=== PATIENT | male | born 1990 | race Caucasian/White ===

== ENCOUNTER 2024-03-20 22:41 | Inpatient (IN) | payer OTHER ==
[~2024-03-20] VITALS: Ht 180.3 cm; Wt 90.0 kg
[2024-03-20] MEDS ORDERED: KETAMINE HCL 500 MG/5 ML MDV ONE ×2 (22:52→23:00)
[2024-03-20] MEDS ORDERED: KETAMINE HCL 500 MG/5 ML MDV IM ONE ×2 (23:00→23:15)
[2024-03-20] MEDS ORDERED: CEFTRIAXONE/SODIUM CHLORIDE 2 GM/100 ML PIGGYBACK IV ONE (23:30)
[2024-03-20] MEDS ORDERED: SODIUM CHLORIDE 0.9% 1,000 ML IV PRN (23:30)
[2024-03-20] MEDS ORDERED: DIPHTH,PERTUSS(ACELL),TET VAC 0.5 ML SYRINGE IM ONE (23:30)
[2024-03-20 23:38] LABS: HEMATOCRIT 39.2 % (35.0-50.0); HEMOGLOBIN 13.2 g/dL (12.0-18.0); MCH 31.4 (27-36); MCHC 33.6 g/dl (30-36); MCV 93.6 fl (81-99); PLATELET COUNT 279 K/uL (140-440); RBC 4.18 M/ul (4.3-5.7); RDW 13.4 (10.5-15.0)
[2024-03-20 23:51] LABS: BANDS, MANUAL DIFF 7; LYMPHOCYTES, MANUAL DIFF 11; MONOCYTES, MANUAL DIFF 5; NEUTROPHILS, MANUAL DIFF 77
[2024-03-21] VITALS (7 sets, daily range): BP systolic 129–159; BP diastolic 75–95
[2024-03-21 00:03] LABS: ALBUMIN 4.2 g/dL (3.4-5.0); ALBUMIN/GLOBULIN RATIO 1.35 (1.1-2.4); ANION GAP 21.3 (7-21); BILIRUBIN, TOTAL 1.6 ng/dL (0.2-1.0); BUN/CREATININE RATIO 16.77 (6.0-28.6); CREATININE, SERUM 1.55 mg/dL (0.70-1.30); POTASSIUM 4.3 mmol/L (3.5-5.1); PROTEIN, TOTAL 7.3 g/dL (6.4-8.2)
[2024-03-21 00:09] LABS: AMPHETAMINES, URINE NEGATIVE (NEGATIVE); BARBITURATES, URINE NEGATIVE (NEGATIVE); BENZODIAZEPINE, URINE NEGATIVE (NEGATIVE); BUPRENORPHINE, URINE NEGATIVE (NEGATIVE); CANNABINOID, URINE NEGATIVE (NEGATIVE); COCAINE, URINE NEGATIVE (NEGATIVE); ECSTASY, URINE NEGATIVE (NEGATIVE); FENTANYL, URINE NEGATIVE (NEGATIVE); METHADONE, URINE NEGATIVE (NEGATIVE); OPIATES, URINE NEGATIVE (NEGATIVE); OXYCODONE, URINE NEGATIVE (NEGATIVE); PHENCYCLIDINE, URINE NEGATIVE (NEGATIVE)
[2024-03-21] MEDS ORDERED: SODIUM CHLORIDE 0.9% 1,000 ML IV SCH ×2 (01:30→01:45)
[2024-03-21] MEDS ORDERED: ACETAMINOPHEN 325 MG TAB PO PRN ×2 (01:45→13:45)
[2024-03-21] MEDS ORDERED: MORPHINE SULFATE 4 MG/ML VIAL IV PRN ×2 (01:45→13:45)
[2024-03-21] MEDS ORDERED: ondansetron HCL 4 MG/2 ML VIAL IV PRN (01:45)
[2024-03-21] MEDS ORDERED: TRAZODONE HCL 100 MG TAB PO ONE (02:15)
[2024-03-21] MEDS ORDERED: LORazepam 0.5 MG TAB PO ONE (03:00)
[2024-03-21 06:22] LABS: BASOPHILS 0.2 % (0-2); HEMATOCRIT 39.7 % (35.0-50.0); HEMOGLOBIN 13.4 g/dL (12.0-18.0); LYMPHOCYTES 20.1 % (24-44); MCH 31.8 (27-36); MCHC 33.7 g/dl (30-36); MCV 94.3 fl (81-99); MONOCYTES 10.7 % (0-12); PLATELET COUNT 223 K/uL (140-440); RBC 4.21 M/ul (4.3-5.7); RDW 13.6 (10.5-15.0)
[2024-03-21 06:48] LABS: ALBUMIN 3.7 g/dL (3.4-5.0); ALBUMIN/GLOBULIN RATIO 1.23 (1.1-2.4); ANION GAP 16.8 (7-21); BILIRUBIN, TOTAL 1.3 ng/dL (0.2-1.0); BUN/CREATININE RATIO 17.96 (6.0-28.6); CALCIUM 8.2 mg/dL (8.5-10.1); CREATININE, SERUM 1.28 mg/dL (0.70-1.30); POTASSIUM 3.8 mmol/L (3.5-5.1); PROTEIN, TOTAL 6.7 g/dL (6.4-8.2)
--- NOTE | 2024-03-21 08:25 | NUR ---
BEDSIDE REPORT RECEIVED FROM IRVIN STEVENSON. PT ESCORTED TO MED-SURG ROOM 117. PT TRANSFERS SELF TO BED WITH STAND AND PIVOT, TOLERATES THIS WELL. ORTHO BOOT IN PLACE TO RLE. PT IS WITHDRAWN AND TEARFUL UPON ARRIVAL. HR TRACHYCARDIC WITH TELEMETRY IN PLACE. PT REPORTS ANXIETY AND REQUESTS ATIVAN. INTERMITTMENT FULL BODY TREMORING NOTED. VSS.
[2024-03-21] MEDS ORDERED: CEFTRIAXONE/SODIUM CHLORIDE 2 GM/100 ML PIGGYBACK IV SCH (09:00)
[2024-03-21] MEDS ORDERED: NICOTINE 21 MG/24 HR 1 EA TDSY TD SCH (09:09)
--- NOTE | 2024-03-21 09:10 | NUR ---
PT REQUESTS ATIVAN FOR ANXIETY, PT VISIBLY SHAKES, TEARFUL. PT REQUESTS SOMETHING FOR SLEEP AND NICOTINE. DR. COLLADO NOTIFIED VIA PHONE, NEW ORDERS RECEIVED.
[2024-03-21] MEDS ORDERED: LORazepam 2 MG/ML VIAL IV PRN ×3 (09:15→18:00)
--- NOTE | 2024-03-21 09:32 | NUR ---
PT BR LIGHT ANSW. PT BACK TO CHAIR SBA. PT VITALS AND I'S AND O'S COMPLETE. PT REQ BREATHING TX. RN NOTIFIED. PT DENIES ANY FUTHER NEEDS, CALL LIGHT IN REACH
[2024-03-21] MEDS ORDERED: VYVANSE10 MG PO (10:04)
[2024-03-21] MEDS ORDERED: TRUVADA 200 MG1 EACH PO (10:04)
[2024-03-21] MEDS ORDERED: CYMBALTA30 MG PO (10:05)
[2024-03-21] MEDS ORDERED: STRATTERA100 MG PO (10:05)
[2024-03-21] MEDS ORDERED: GUANFACINE HCL E4 MG PO (10:08)
[2024-03-21] MEDS ORDERED: SEROQUEL25 MG PO (10:10)
[2024-03-21] MEDS ORDERED: ZYRTEC10 M3 PO (10:13)
[2024-03-21] MEDS ORDERED: ATIVAN2 MG PO (10:14)
[2024-03-21] MEDS ORDERED: ENOXAPARIN SODIUM 40 MG/0.4 ML SYR SUB-Q SCH (10:14)
--- NOTE | 2024-03-21 11:00 | NUR ---
VISITED DURING SPIRITUAL CARE ROUNDS. VERIFIED CATHOLIC PREFENCE; PT STATES AGNOSTIC, DENIED IMMEDIATE NEEDS, RETICENT TO CONVERSE. PROVIDED HOSPITALITY, SILENT PRAYER.
--- NOTE | 2024-03-21 11:11 | NUR ---
pt call light answered. pt stated that a nurse said they would bring a manager distribution. I brought in manager distribution for pts phone. pt denies further needs. call light in reach
[2024-03-21] MEDS ORDERED: LORazepam 2 MG/ML VIAL IV ONE ×2 (11:15→13:00)
[2024-03-21] MEDS ORDERED: PHARMACY RENAL DOSE ADJUSTMENT 1 DOSE MISC PO SCH (12:00)
--- NOTE | 2024-03-21 12:24 | NUR ---
[facility] CLINICAL REVIEW: [facility] CRITERIA FOR INPATIENT STAY SELF-PAY INPATIENT 03/21/24 @ 1014 ORDER MATCHED REG DISCHARGE PENDING FURTHER ASSESSMENT 03/24/24
--- NOTE | 2024-03-21 12:49 | NUR ---
medications reconciled using patient's list and patient interview
--- NOTE | 2024-03-21 13:10 | NUR ---
PER Meme WAYNE RN, PATIENT IS ANXIOUS AT THIS TIME. SHE IS GIVING PRESCRIBED MEDICATION BUT STATES HE IS VERY ANXIOUS. WILL RETURN WHEN MEDICATION HAS HAD TIME TO WORK.
[2024-03-21] MEDS ORDERED: DULOXETINE HCL 30 MG CAP PO SCH (13:13)
[2024-03-21] MEDS ORDERED: QUETIAPINE FUMARATE 25 MG TAB PO PRN (13:15)
[2024-03-21] MEDS ORDERED: EMTRICITABINE/TENOFOVIR TABLET PO SCH (13:17)
--- NOTE | 2024-03-21 13:31 | NUR ---
PT EXPRESSES ANXIETY, FULL BODY TREMORS, REQUEST ATIVAN, TAKES 2 MG OF ATIVAN AT HOME PRN. DR. COLLADO NOTIFIED, NEW ORDERS RECEIVED. PT RECEIVES ATIVAN, SEE EMAR.
[2024-03-21] MEDS ORDERED: HYDROCODONE/APAP 10/325 1 TAB PO PRN (13:45)
--- NOTE | 2024-03-21 13:45 | NUR ---
DR. COLLADO NOTIFIED THAT PAIN MEDICATION ORDERS BRIDGED FROM ER HAVE DISCONTINUED, NO PAIN MEDICATION AVAILABLE IN EMAR FOR PT, NEW ORDERS RECEIVED.
--- NOTE | 2024-03-21 13:46 | NUR ---
pt in bed. vitals and is and os complete. pt urinal emptied and placed at bedside. pt ice water refilled. pt denies any needs, call light in reach
[2024-03-21] MEDS ORDERED: GUANFACINE HCL 1 MG TAB PO SCH (14:52)
--- NOTE | 2024-03-21 16:30 | NUR ---
DRESSING OVER RIGHT FOOT REMOVED, PHOTOS OF RIGHT FOOT INJURY OBTAINED. SIGNIFICANT SWELLING NOTED OVER FOOT AND ANKLE. REDNESS AND BRUISING NOTED OVER FOOT, ANKLE AND BILATERAL SIDES OF FOOT. SMALL SCATTERED SKIN BREAKS, PARTIAL-THICKNESS NOTED OVER DORSAL FOOT. BACITRACIN OINTMENT APPLIED WITH NON-ADHERENT DRESSING OVER BROKEN SKIN. FOOT COVERED WITH GAUZE ROLL AND LIGHTLY WRAPPED WITH ELASTIC BANDAGE. RLE REMAINS IN ORTHO BOOT. ICE APPLIED OVER FOOT. CMS INTACT TO ALL DIGITS OF RIGHT FOOT, SKIN IS WARM AND PINK OVER TOES.
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
--- NOTE | 2024-03-21 17:33 | NUR ---
PT IN BED. WOOL HANKER, WELL A FEMALE PRESENT IN THE ROOM VISITING W PT, BUT LEFT ROOM AFTER ARRIVAL TO ROOM. PT VITALS, IS AND OS COMPLETE. PT PROVIDED HAYLEY DAPHNIE. PT LING CACERES RN NOTIFIED. PT DENIES ANY FURTHER NEEDS. CALL LIGHT IN REACH
--- NOTE | 2024-03-21 17:48 | NUR ---
DR. COLLADO NOTIFIED OF PT ANXIETY ESCALATING, NEW ORDER TO INCREASE FREQUENTY OF PRN ATIVAN TO Q3 HRS RECEIVED. PT RECEIVES ATIVAN. PT EATS DINNER. CALL LIGHT IN REACH, RLE ELEVATED, ICE IN PLACE RIGHT FOOT AND LEFT ANKLE. NO FURTHER REQUESTS AT THIS TIME.
--- NOTE | 2024-03-21 19:23 | NUR ---
REPORT RECEIVED FROM DAY SHIFT RN. PATIENT RESTING IN BED. BOOT IN PLACE TO RIGHT LOWER EXTERMITY. ICE TO BILATERAL LOWER EXTERMITIES. PATIENT DENIES ANY NEEDS AT THIS TIME. CALL LIGHT WITHIN REACH.
--- NOTE | 2024-03-21 20:30 | NUR ---
PATIENT RESTING IN BED LISTENING TO PHONE. PATIENT VSS, BOWEL TONES ACTIVE X 4 QUADRANTS. ABD TENDER TO TOUCH. RLE REMAINS IN BOOT, DRESSING TO RLE INATCT. SWELLING NOTED, POSITIVE CMS TO RLE. POSITIVE CMS TO LLE. ICE IN PLACE TO BOTHE BLLE. RLE ELEVATED. PATIENT C/O PAIN PRN GIVEN SEE NOV. LUNG SOUNDS CTA. TELE IN PLACE AND FUNCTIONING WNL. URINAL EMPTIED. NO FURTHER NEEDS AT THIS TIME. CALL LIGHT WITHIN REACH.
[2024-03-21] MEDS ORDERED: CETIRIZINE HCL 10 MG TAB PO SCH (21:00)
[2024-03-21] MEDS ORDERED: MELATONIN 3 MG TAB PO SCH (21:00)
--- NOTE | 2024-03-21 21:07 | NUR ---
PT CALLED ASKED FOR ICE WATER. PT ASKED IF HE COULD GET SOMETHING FOR SLEEP. RN WAS NOTIFIED. PT HAS CALL LIGHT AND IS OKAY
--- NOTE | 2024-03-21 23:00 | NUR ---
PATIENT RESTING IN BED WITH EYES CLOSED. LAYING ON HIS LEFT SIDE. RESPIRATIONS EVEN AND UNLABORED. CALL LIGHT WITHIN REACH.
[2024-03-22] VITALS (11 sets, daily range): BP systolic 138–161; BP diastolic 67–94
--- NOTE | 2024-03-22 00:55 | NUR ---
PATIENT RESTING IN BED WITH EYES CLOSED. RESPIRATIONS EVEN AND UNLABORED. CALL LIGHT WITHIN REACH.
--- NOTE | 2024-03-22 02:00 | NUR ---
PATIENT VSS. PATIENT REMAINS TACHY PER BASELINE ON ADMIT. C/O PAIN AND ANXIETY PRN GIVEN SEE NOV. BOOT REMAINS IN PLACE TO RLE. CMS POSITIVE TO BIATERAL LOWER EXTREMITIES. VOIDING QUANITY SUFFICIENT. FRESH ICE WATER GIVEN. NO FURTHER NEEDS AT THIS TIME. CALL LIGHT WITHIN REACH.
--- NOTE | 2024-03-22 04:15 | NUR ---
PATIENT RESTING IN BED WITH EYES CLOSED. LAYING ON HIS LEFT SIDE. RESPIRATIONS EVEN AND UNLABORED. CALL LIGHT WITHIN REACH.
--- NOTE | 2024-03-22 05:06 | NUR ---
SPOKE WITH REGUARDING CONCERNS ABOUT PATIENT NOT HAVING MAINTANCE IVF AND AM LABS. NEW ORDERS RECEIVED FOR [facility] LABS THIS AM. ORDERS VERIFIED VIA VERBAL READ BACK.
--- NOTE | 2024-03-22 05:43 | NUR ---
WENT IN TO PT ROOM TO GRAB VITALS, PT ASKED FOR SOMETHING FOR HIS ANXIETY. RN WAS NOTIFIED. I CHARTED PT VITALS AND I & O'S. PT HAS CALL LIGHT.
--- NOTE | 2024-03-22 06:09 | NUR ---
PATIENT RESTING IN BED. REPORTS PAIN 7/10 AND INCREASED ANXIETY. PRN GIVEN SEE MAR. BOOT REMAINS IN PLACE TO RLE. ICE REAPPLIED TO RLE, ELEVATED WELL. POSITIVE CMS TO BLLE, SWELL REMAINS TO BLLE. BRUSIING TO RLE REMAINS. NO FURTHER NEEDS AT THIS TIME. CALL LIGHT WITHIN REACH.
[2024-03-22 06:15] LABS: BASOPHILS 0.4 % (0-2); EOSINOPHILS 1.1 % (0-6); HEMATOCRIT 34.3 % (35.0-50.0); LYMPHOCYTES 22.3 % (24-44); MCH 32.4 (27-36); MCHC 34.9 g/dl (30-36); MCV 92.9 fl (81-99); MONOCYTES 11.3 % (0-12); NEUTROPHILS 64.9 % (39-80); PLATELET COUNT 192 K/uL (140-440); RBC 3.69 M/ul (4.3-5.7); RDW 13.3 (10.5-15.0)
[2024-03-22 06:44] LABS: ANION GAP 9.2 (7-21); BUN/CREATININE RATIO 13.04 (6.0-28.6); CALCIUM 7.7 mg/dL (8.5-10.1); CREATININE, SERUM 0.92 mg/dL (0.70-1.30); POTASSIUM 3.2 mmol/L (3.5-5.1)
--- NOTE | 2024-03-22 08:00 | NUR ---
RN IN ROOM WITH MD EDWARD - PT RESTING IN BED WITH RIGHT LEG ELEVATED. PT OPENS EYES AND MAKES EYE CONTACT INTERMITANTLY WHILE ANSWERING QUESTIONS. PT ABLE TO REPORT SAME STORY TO DR. MURPHY IN REGARDS TO TRAVEL AND INTENTIONS/SITUATION. PT REPORTS SIGNIFICANT PAIN R ANKLE, MODERATE ANXIETY. TREMOR NOTED WELL SWEAT ON UPPER LIP. BOOT REMOVED AND EVALUATED, PEDAL PULSES PALPABLE, BRUISING AND INJURY NOT CONSISTANT OF STORY THAT HE FELL OUT OF BED WHILE WEARING SNEAKERS. PT STATES IS DIFFERENT THAN WHAT IS ON EMAR, ABLE TO SHOW ME ID CARD ON PHONE THAT STATES IS 02/17/24. SERVOMECHANISM DESIGNER NOTIFIED.
--- NOTE | 2024-03-22 08:12 | NUR ---
PT IS LAYING IN BED EYES CLOSED AND RESTING. WEED SCIENCE RESEARCH TECHNICIAN ENTERED ROOM AND EMPTIED PT URINAL. RESULT IS RECORDED ON BATHROOM DOOR. WEED SCIENCE RESEARCH TECHNICIAN ALSO UPDATED PT BOARD IN ROOM WITH CORRECT NURSE INFORMATION
--- NOTE | 2024-03-22 08:49 | NUR ---
Call light answered. Pt appears to be in pain as evidenced by facial grimacing. Pt is requesting pain and anxiety medication. RN notified of pt request. Call light within reach.
--- NOTE | 2024-03-22 09:00 | NUR ---
PAIN MEDICATION ADMINISTERED FOR 8/10 PAIN IN RIGHT ANKLE. ICE APPLIED AND ELEVATED. PRN FOR ANXIETY NOT YET DUE.
[2024-03-22] MEDS ORDERED: SODIUM CHLORIDE 0.9% 1,000 ML IV SCH (10:00)
[2024-03-22] MEDS ORDERED: POTASSIUM CHLORIDE 10 MEQ TABCR PO SCH (10:00)
--- NOTE | 2024-03-22 10:27 | NUR ---
PRN ATIVAN ADMINISTERED - PT RESTING IN BED ON CELL PHONE. REPORTS PAIN IS 6/10, EDUCATED ON AVAILABLE MEDICATION DOSING/TIMING. IV FLUID RUNNING AT 150ML/HOUR. URINE OUTPUT CLEAR YELLOW.
--- NOTE | 2024-03-22 12:37 | NUR ---
PRN PAIN MEDICATION ADMINISTERED FOR 7/10 LEG PAIN. REPORTS ANXIETY IS "STILL PRETTY BAD", DENIES ATIVAN HELPING. EDUCATION PROVIDED ON DOSE OF ATIVAN ADMINISTERED VS HOME DOSE. PT RESTING ON SIDE LISTENING TO AUDIO BOOK. LIGHTS AND WINDOWS REMAIN OFF PER PT REQUEST.
--- NOTE | 2024-03-22 12:40 | NUR ---
RN ROUNDING ON PT - UP IN CHAIR ON PHONE, STATES SHE FEELS "MUCH BETTER". DENIES NEEDS. CALL LIGHT IN REACH.
--- NOTE | 2024-03-22 13:38 | NUR ---
RECEIVED REPORT FROM IRVIN WALLER. ASSUMING CARE OF PT.
--- NOTE | 2024-03-22 14:19 | NUR ---
THIS RN ENTERS ROOM TO GIVE PT PRN PAIN MEDICATION AND ATIVAN, PT STATES PRN MORPHINE HAS NOT BEEN HELPING THE PAIN AND REQUESTS A DIFFERENT PAIN MEDICATION IF POSSIBLE. THIS RN SPEAKS WITH DR. COLLADO REGARDING THIS, MD STATES TO DC MORPHINE ORDER AND ORDER DILAUDED 1MG Q2 PRN. ORDERS ENTERED, REPEAT BACK PERFORMED. PHARMACY CALLED FOR POTENTIAL INTERACTIONS.
[2024-03-22] MEDS ORDERED: HYDROmorphone HCL 1 MG/ML SYR IV PRN (14:30)
--- NOTE | 2024-03-22 16:23 | NUR ---
PT IS LAYING IN BED ASLEEP. PATIENT HAS ICE WATER AND CALL LIGHT.
--- NOTE | 2024-03-22 17:43 | NUR ---
PT TALKING ON PHONE, STATES NO NEEDS AT THIS TIME. FINISHES DINNER TRAY. CALL LIGHT WITHIN REACH.
--- NOTE | 2024-03-22 18:18 | NUR ---
I GOT PATIENTS VITALS, Is AND Os. PATIENT SAYS HE IS IN PAIN AND WONDERING WHEN HIS NEXT PAIN PILL IS. RN WAS NOTIFIED. PATIENT HAS WATER AND CALL LIGHT.
--- NOTE | 2024-03-22 18:20 | NUR ---
PT REQUESTS PRN PAIN MEDICATION FOR 8/10 PAIN IN R FOOT, GIVEN. PT REQUESTS ATIVAN, GIVEN. PT STATES NO FURTHER NEEDS AT THIS TIME, CALL LIGHT WITHIN REACH.
--- NOTE | 2024-03-22 19:10 | NUR ---
REPORT RECEIVED FROM DAY RN. PATIENT RESTING IN BED. RIGHT FOOT IS ELEVATED. NO NEEDS AT THIS TIME. CALL LIGHT WITHIN REACH.
--- NOTE | 2024-03-22 19:56 | NUR ---
CALL LIGHT ANSWERED. PT REQUESTED ICE WATER AND SOMETHING TO EAT. FRAME CLEANER REFILLED ICE WATER AND GAVE PT A SANDWICH BOX. PT STATES NO FURTHER NEEDS AT THIS TIME. CALL LIGHT WITHIN REACH.
--- NOTE | 2024-03-22 20:26 | NUR ---
PATIENT CALL LIGHT ANSWERED. PATIENT INSISTING THAT HE WALK INTO THE BAHTROOM TO VOID. ASSISTED PATIENT INTO BATHROOM. AMBULATED WELL WITH FWW AND 1 PA ASSIST. WALKING BOOT IN PLACE. RN EDUCATED PATIENT ON IMPORTANCE OF AVOIDING BEARING WEIGHT ON HIS RLE. ONCE IN THE BAHTROOM PATIENT INSISTED THAT THIS RN LEAVE THE BATHROOM. PATIENT ASSISTED BACK INTO BED. HS MEDICATION GIVEN. PRN GIVEN FOR PAIN TO RLE. PATIENT AGAIN INSTSED THAT HE BE HELPED INTO THE BAHTROOM. RN ASSISTED PATIENT AMBULATE INTO BATHROOM. PATIENT REFUSED TO WEAR HIS WALKING BOOT THIS TIME. AGAIN ONCE IN BAHTROO PATIENT INSISTED THAT RN LEAVE THE BAHTROOM. PATIENT BACK IN BED. PATIENT NOW VISABLY SWEATING AND HOT. AGAIN PATIENT ASKED TO GO BACK INTO BAHTROOM. RN ASSISTED THE PATIENT TO USE THE URINAL IN BED. PATIENT FRUSTRATED WITH USING URINAL IN BED. PATIENT GOT OUT OF BED AND WENT INTO BAHTROOM. RN ATTEMPTED TO CUE AND GUIDE PATIENT BACK TO BED BUT HE REFUSED. RN ASSISTED PATIENT BACK INTO BED. FINANCE SPECIALIST IN ROOM TO ASSIST PATIENT WITH BLANKETS AND TOOK VITALS. VITALS WNL.
--- NOTE | 2024-03-22 21:00 | NUR ---
PT CALLED, RN TO ROOM, PT UNABLE TO STATE WHAT HE WANTED, FALLING ASLEEP DURING CONVERSATION, TRAVELIFT OPERATOR WITH THIS RN. NOTED PT RIGHT HAND SWOLLEN, PALM SIDE WELL, SL RED. IV FLUIDS PUT IN STANDBY; HOUSESUPERVISOR TO PUT IN IV. WHILE THIS RN IN ROOM, NOTED PT WITH PERIODS OF APNEA. DEEP SNORING DURING CONVERSATIONS; STERNAL RUB TO WAKE HIM. O2 STATS, 78-80 DURING THESE PERIODS. ONCE AWAKE, STATS IMPROVED TO 90'S.
--- NOTE | 2024-03-22 21:03 | NUR ---
PATIENT C/O NAUSEA. MD CONTACTED, NEW ORDERS RECEIVED VIA TELEPHONE. ORDERS VERIFIED VIA VERBAL READ BACK. PHENERGAN 12.5MG IV Q 4 PRN FOR NAUSEA AND VOMITTING.
--- NOTE | 2024-03-22 21:08 | NUR ---
PAYROLL BENEFITS ADMINISTRATOR CHANGED TELE BATTERY AND OBTAINED PT VITALS AND I&O. PT IS RESTLESS AND COMPLAINED OF NAUSEA AND FEELING DIZZY. RN NOTIFIED. PT STATES NO FURTHER NEEDS AT THIS TIME. CALL LIGHT WITHIN REACH.
--- NOTE | 2024-03-22 21:20 | NUR ---
THE RN NOTIFIED BY CHARGE NURSE THAT PATIENT IV WAS INFLITRATED. WAIT STAFF RN IN ROOM TO START NEW IV. THIS RN NOTIFIED THAT PATIENT'S LOC WAS DECREASED. RN NOTIFIED . ON UNIT TO ASSESS PATIENT. PATIENTS LOC AND RESPIRATORY RATE CONTINUED TO DECLINE. OXYGEN PLACED ON PATIENT. PATIENT AWAKENED WITH A STERNAL RUB. ONCE AWAKE PATIENT INSISTED TO GOING TO THE [facility]. DUE TO SAFETY CONCERNS PATIENT WAS ASSISTED WITH URINAL AND BEDSIDE COMODE. PATIENT WITH SMALL VOID IN BSC. BLOOD SUGAR TAKEN WNL. PATIENT TAKEN TO CCU PER MD ORDER. REPORT GIVEN TO CCU NURSE.
--- NOTE | 2024-03-22 21:20 | NUR ---
WITH ASSISTANCE OF ADMINISTRATIVE REPRESENTATIVE PT MOVED TO ROOM 110, AGAIN DESATED O2 PLACED, PRIMARY RN TO CALL DR COLLADO.
[2024-03-22] MEDS ORDERED: NALOXONE HCL 0.4 MG SYR ONE (21:36)
[2024-03-22] MEDS ORDERED: NALOXONE HCL 0.4 MG SYR IV ONE ×2 (21:40→21:45)
[2024-03-22 21:55] LABS: BASOPHILS 0.4 % (0-2); EOSINOPHILS 1.3 % (0-6); HEMATOCRIT 36.3 % (35.0-50.0); HEMOGLOBIN 12.3 g/dL (12.0-18.0); LYMPHOCYTES 21.9 % (24-44); MCH 32.1 (27-36); MCHC 33.9 g/dl (30-36); MCV 94.5 fl (81-99); MONOCYTES 10.7 % (0-12); NEUTROPHILS 65.7 % (39-80); PLATELET COUNT 223 K/uL (140-440); RBC 3.85 M/ul (4.3-5.7); RDW 13.2 (10.5-15.0)
[2024-03-22 21:59] LABS: BASE EXCESS, BLOOD GAS 1.7 mmol/L (-2-2); O2 SATURATION, BLOOD GAS 99.2 % (95.0-100.0); PCO2, BLOOD GAS 44.3 mmHg (35-45); PH, BLOOD GAS 7.39 (7.35-7.45); TOTAL CO2, BLOOD GAS 28.4
[2024-03-22 22:04] LABS: INR 1.06 (0.80-1.30); PROTIME 13.4 Sec (11.2-14.2)
[2024-03-22 22:09] LABS: ALBUMIN 3.1 g/dL (3.4-5.0); ALBUMIN/GLOBULIN RATIO 0.94 (1.1-2.4); ANION GAP 11.8 (7-21); BILIRUBIN, TOTAL 0.5 ng/dL (0.2-1.0); BUN/CREATININE RATIO 9.7 (6.0-28.6); CALCIUM 8.1 mg/dL (8.5-10.1); CREATININE, SERUM 1.03 mg/dL (0.70-1.30); POTASSIUM 3.8 mmol/L (3.5-5.1); PROTEIN, TOTAL 6.4 g/dL (6.4-8.2)
[2024-03-22] MEDS ORDERED: OLANZapine 10 MG VIAL IV ONE (22:15)
[2024-03-22 22:42] LABS: AMPHETAMINES, URINE NEGATIVE (NEGATIVE); BARBITURATES, URINE NEGATIVE (NEGATIVE); BENZODIAZEPINE, URINE NEGATIVE (NEGATIVE); BUPRENORPHINE, URINE NEGATIVE (NEGATIVE); CANNABINOID, URINE NEGATIVE (NEGATIVE); COCAINE, URINE NEGATIVE (NEGATIVE); ECSTASY, URINE NEGATIVE (NEGATIVE); FENTANYL, URINE NEGATIVE (NEGATIVE); METHADONE, URINE NEGATIVE (NEGATIVE); OPIATES, URINE POSITIVE (NEGATIVE); OXYCODONE, URINE NEGATIVE (NEGATIVE); PHENCYCLIDINE, URINE NEGATIVE (NEGATIVE)
[2024-03-22 22:57] LABS: ERYTHROCYTE SEDIMENTATION RATE 13
--- NOTE | 2024-03-22 23:00 | NUR ---
2139 PATIENT ARRIVED TO THE UNIT VIA BED WITH DIRECTOR OF ADULT EPILEPSY, MEDSURG CHARGE, PRIMARY RN, AND . PATIENT IS OBTUNDED, LOUD SNORING WITH APNIC EPISODES NOTED. DESATS TO 70'S ON ROOM AIR. OXYMASK 15L PLACED AND JAW THRUST DONE. MINIMAL IMPROVEMENT NOTED. SWITCHED TO NON-REBREATHER AT 15L. PATIENT WOKE BRIEFLY TO HARD STERNAL RUB. DISCUSSED PLAN WITH MD, RECOMMENDATION FOR NARCAN. MD ORDERED 0.4 MG NARCAN X2, WHICH WAS GIVEN. PATIENT MORE ALERT AFTER SEVERAL MINS BUT FREQUENTLY LETHARGIC. SECOND IV SITE STARTED AND LABS DRAWN. ABG DRAWN BY RT. [address] PATIENT MORE ALERT. DIFFICULT TO CONSOLE AND NOT FOLLOWING INSTRUCTIONS WELL. UPON RETURN TO ROOM PATIENT INSISTENT ON USING THE BATHROOM. RN ASSISTED PATIENT INTO BATHROOM TO HAVE BM. SMALL FORMED BM NOTED. PATIENT CRYING UNCONSOLABLY AND DIFFICULT TO ASSESS MENTAL STATUS. ASSISTED TO RETURN TO BED, VS STABLE. PATIENT 1:1 DUE TO IMPULSIVE BEHAVIOR AND EMOTIONAL STATUS. PATIENT THEN FELL ASLEEP AND AGAIN SNORING LOUDLY. OXYMASK PLACED WITH 6L O2. 2229 PATIENT CONTINUES TO BE LETHARGIC. POC DISCUSSED WITH MD. IV FLUIDS RESUMED PER ORDER. PATIENT INCONTINENT OF URINE, GOWN CHANGED AND MALE PAD PLACED TO MANAGE INCONTINENCE. PATIENT DOES NOT WAKE FOR THIS ACTIVITY.
[2024-03-23] VITALS (9 sets, daily range): BP systolic 125–147; BP diastolic 62–107
[2024-03-23] MEDS ORDERED: IBUPROFEN 800 MG TAB PO SCH
--- NOTE | 2024-03-23 02:45 | NUR ---
PATIENT WOKE WHEN RN IN ROOM. PATIENT ALERT AND FOLLOWS INSTRUCTIONS BUT IS UNSTEADY ON HIS FEET WHEN GETTING UP TO BSC. PATIENT VOIDED LARGE AMOUNT AND WAS PREVIOUSLY INCONTINENT OF LARGE AMOUNT OF URINE. PATIENT DOES NOT HAVE MEMORY OF RAPID RESPONCE SITUATION OR BEING IN CCU. PATIENT DOES REMEMBER THIS RN NAME. PATIENT ASKED ABOUT WHICH TOWN HE IS IN AND ABOUT HIS HOTEL ROOM. PATIENT HAS VAUGE MEMORIES OF SITUATION OVER THE LAST 3 DAYS. VS STABLE. PATIENT TOLERATING ROOM AIR. ETCO2 40. PATIENT DENIED FEELING ANXIOUS AT THIS TIME OR PAINFUL. FRESH ICE WATER PROVIDED. CALL LIGHT IN REACH.
--- NOTE | 2024-03-23 05:18 | NUR ---
PATIENT UP TO THE BATHROOM. PATIENT CALLED FOR ASSISTANCE AND AMBULATED WITH FWW KEEPING WEIGHT OFF RIGHT FOOT. PATIENT VOIDED AND RETURNED TO BED. REPORTS 3/10 HEADACHE AND 8/10 PAIN IN HIS RIGHT FOOT. DISCUSSED PLAN FOR PAIN CONTROL WITH MD AND EDUCATION PROVIDED TO PATIENT ON PAIN MANAGEMENT AFTER POSSIBLE OVER SEDATION. PATIENT CONCERNED FOR PAIN CONTROL. ENCOURAGED PATIENT TO TALK WITH MD DURING ROUNDS THIS MORNING.
[2024-03-23] MEDS ORDERED: MORPHINE SULFATE 4 MG/ML VIAL IV PRN (05:30)
[2024-03-23] MEDS ORDERED: NALOXONE HCL 0.4 MG SYR IV PRN (05:45)
[2024-03-23 07:22] LABS: AMPHETAMINES, URINE NEGATIVE (NEGATIVE); BARBITURATES, URINE NEGATIVE (NEGATIVE); BENZODIAZEPINE, URINE NEGATIVE (NEGATIVE); BUPRENORPHINE, URINE NEGATIVE (NEGATIVE); CANNABINOID, URINE NEGATIVE (NEGATIVE); COCAINE, URINE NEGATIVE (NEGATIVE); ECSTASY, URINE NEGATIVE (NEGATIVE); FENTANYL, URINE NEGATIVE (NEGATIVE); METHADONE, URINE NEGATIVE (NEGATIVE); OPIATES, URINE POSITIVE (NEGATIVE); OXYCODONE, URINE NEGATIVE (NEGATIVE); PHENCYCLIDINE, URINE NEGATIVE (NEGATIVE)
--- NOTE | 2024-03-23 07:50 | NUR ---
REPORT RECEIVED FROM NIGHT RN - PT RESTING IN BED, VS WNL ON MONITOR.
--- NOTE | 2024-03-23 08:30 | NUR ---
PT UPDATE PROVIDED TO MD, NEW ORDER RECEIVED, ENTERED.
--- NOTE | 2024-03-23 09:00 | NUR ---
RN IN ROOM TO COMPLETE ASSESSMENT. PT ALERT AND ORIENTED RESTING IN BED. MILDLY DIAPHORETIC AND TREMORS NOTED WITH INTENTIONAL MOVEMENT. VS ON MONITOR WNL, OCCASIONALLY TACHY WITH MOVEMENT, MUCH IMPROVED FROM YESTERDAY. PT ASSISTED WITH AMBULATION TO BATHROOM USING FWW, NON WEIGHT BEARING ON RIGHT FOOT. PT UNABLE TO HAVE A BM, URINE VINITA. LAB IN ROOM TO DRAW AM LABS. PT PREPPED FOR MRI, SCREENING FORM COMPLETE. PT REQUESTS ATIVAN TO HELP WITH ANXIETY R/T MRI MACHINE.
--- NOTE | 2024-03-23 09:15 | NUR ---
PT OFF FLOOR TO MRI WITH THIS RN.
[2024-03-23 09:31] LABS: ANION GAP 12.1 (7-21); BUN/CREATININE RATIO 9.47 (6.0-28.6); CALCIUM 8.6 mg/dL (8.5-10.1); CREATININE, SERUM 0.95 mg/dL (0.70-1.30); POTASSIUM 4.1 mmol/L (3.5-5.1)
--- NOTE | 2024-03-23 10:00 | NUR ---
PT BACK TO ROOM FROM MRI WITH THIS RN. PT COMPLAINS OF NAUSEA AND INCREASED PAIN. REQUEST MADE TO MD FOR JUNG PRN BY TRADE MARK EXAMINER. VS REMAIN STABLE. PT STILL ALERT AND ORIENTED. REPORTS HEADACHE AND SOME SENSITIVITY TO LIGHT, NO LONGER HAVING TACTILE DISTURBANCES. TREMOR AND CLAMMY SKIN REMAIN. MD AT BEDSIDE TO ROUND.
[2024-03-23] MEDS ORDERED: ondansetron HCL 4 MG/2 ML VIAL IV PRN (10:15)
--- NOTE | 2024-03-23 10:19 | NUR ---
PATIENT JUST RETURNED FROM MRI. PATIENT IS CALM AT THIS TIME. PATIENT'S NURSE IS BUSY PROVIDING CARE TO THE PATIENT. THE ADMITTED ATTORNEYS WILL RETURN TO DO THE PATIENT DISCHARGE NEEDS ASSESSMENT LATER TODAY.
--- NOTE | 2024-03-23 10:51 | NUR ---
PLACED CONSULT FOR TELE PSYCH EVAL
--- NOTE | 2024-03-23 11:14 | NUR ---
PT AND OT IN ROOM TO COMPLETE EVALUATION.
--- NOTE | 2024-03-23 11:26 | NUR ---
UR CLINICAL REVIEW: RENE [facility] INPAT CRITERIA FOR MUSCULOSKELETAL DISEASE INPT 03/22/24 @ 1300 OOS PENDING ELGIBILITY AFTER CLINICAL REVIEWS ORDER MATCHES STATUS CLINICALS FAXED TO [facility] FAXED TO [facility] TO RETURN TO HOME WHEN STABLE 03/26/24
--- NOTE | 2024-03-23 12:19 | NUR ---
PT PROVIDED LUNCH, DENIES NAUSEA. ASSISTED UP TO BATHROOM TO VOID USING CRUTCHES - DEMONSTRATED APPROPRIATE USE. PT RATES PAIN 5/10 AFTER PRN NORCO. PT TALKING AND CREATING CONVRESATION, UPBEAT MOOD, DIFFERENT THAN EARLIER IN SHIFT. PT STATES ANXIETY IS STILL UNCHANGED AFTER PRN NORCO.
--- NOTE | 2024-03-23 12:49 | NUR ---
PT CONNECTED TO TELEPSYCH IN ROOM. H/P VERBALLY DISCUSSED WITH PROVIDER NOTES COULD NOT BE UPLOADED.
--- NOTE | 2024-03-23 12:58 | NUR ---
SPOKE TO PATIENT ABOUT THE DISCHARE PLAN. PATIENT SAYS HE WAS ON HIS WAY TO [place] TO LIVE [facility] HIS [facility] AND FIND A JOB. PATIENT DOES NOT HAVE A PCP AND PLANS TO GET ONE ONCE THE RELOCATION IS DONE. THE PATIENT WAS GIVEN A SET OF CRUTCHES AND PT DID EDUCATION ON PATIENT USE. THE PATIENT WILL BUY A TRANSFER BENCH PER PT'S SUGGESTION WHEN THE PATIENT GETS TO [place]. PATIENT WILL HAVE HOUSING AND FOOD ONCE THE PATIENT GETS TO HIS [facility]. PATIENT DOES NOT WANT ANY HELP AT THIS TIME. PATIENT WANTS TO GET BACK ON THE ROAD TO HIS [facility].
--- NOTE | 2024-03-23 13:10 | NUR ---
spoke with tele psych doctor who requested that community counseling services be contacted to place pt on a mental health hold. called [facility] and they will come evaluate
--- NOTE | 2024-03-23 13:52 | NUR ---
PATIENT CONTINUES TO SLEEP. PATIENT LIVES IN [place] AND DOES NOT HAVE A PCP. TURKISH RUBBER WILL TRY TO DISCUSS THE DISCHARGE PLAN WHEN THE PATIENT WAKES UP.
[2024-03-23] MEDS ORDERED: ACETAMINOPHEN 500 MG TAB PO PRN (14:00)
--- NOTE | 2024-03-23 14:00 | NUR ---
MD UPDATED ON TELE PSYCH RECOMENDATION TO CALL [facility]. MD UPDATED ON PT REQUEST TO CHANGE PAIN MEDICATION TO NON NARCOTIC INCLUDING IBUPROPHEN AND TYLENOL, TELEPHONE ORDERS RECEIVED AND ENTERED. PT MOOD CONTINUING TO ESCALATE WITH MANIC TYPE BEHAVIOR, MULTIPLE TRIPS TO BATHROOM AND REPEADED USE OF CALL LIGHT WITH REQUESTS.
[2024-03-23] MEDS ORDERED: NICOTINE POLACRILEX 4 MG LOZENGE BUCCAL PRN (14:30)
[2024-03-23] MEDS ORDERED: IBUPROFEN 600 MG TAB PO PRN ×2 (14:30→17:00)
--- NOTE | 2024-03-23 15:00 | NUR ---
[facility] REPORTS CLEARING PT FROM [facility] - UPDATED.
--- NOTE | 2024-03-23 15:33 | NUR ---
RN IN ROOM ROUNDING WITH MD TO UPDATE PT ON PLAN OF CARE POST MRI RESULTS. PT MANIC IN BEHAVIOR, UNABLE TO SIT STILL WITH DISORGANIZED THOUGHTS AND PRESSURED SPEECH.
--- NOTE | 2024-03-23 15:57 | NUR ---
TRANSFER TO FACILITY WITH ORTHO SURGEON INITIATED PER MD REQUEST. PT AWARE OF PLAN, ALL QUESTIONS ANSWERED.
[2024-03-23] MEDS ORDERED: ARIPiprazole 10 MG TAB PO SCH ×2 (16:30)
[2024-03-23] MEDS ORDERED: ARIPIPRAZOLE10 MG PO (17:13)
--- NOTE | 2024-03-23 17:14 | NUR ---
RN ROUNDING WITH MD IN ROOM - PT UPDATED ON ADVICE FROM ORTHO SURGEON, PT VERBALIZED NOT WANTING TO FOLLOW UP OUTPATIENT IN [place]. PT VERBALIZES WANTING TO BE DC'Carlos BALL.
[2024-03-23] MEDS ORDERED: IBUPROFEN800 MG PO (17:16)
[2024-03-23] MEDS ORDERED: POLYETHYLENE GLYCOL 3350 1 PACKET PO SCH (21:00)
== END 2024-03-23 18:15 | disposition home or self-care (01) | DRG 558 ==
LOC: ED 22:41 → MS 22:42 → CCU 03-22 21:30 → EDBD 03-22 23:00 → CCU 03-22 23:01
PROVIDERS: Family Medicine; ADMIT Internal Medicine; ATTEND Internal Medicine
DX: M62.82 Rhabdomyolysis (principal); G93.40 Encephalopathy, unspecified; F43.10 Post-traumatic stress disorder, unspecified; F90.9 Attention-deficit hyperactivity disorder, unspecified type; F41.0 Panic disorder [episodic paroxysmal anxiety]; S92.311A Displaced fracture of first metatarsal bone, right foot, initial encounter for closed fracture; S92.341A Displaced fracture of fourth metatarsal bone, right foot, initial encounter for closed fracture; S92.211A Displaced fracture of cuboid bone of right foot, initial encounter for closed fracture; S92.201A Fracture of unspecified tarsal bone(s) of right foot, initial encounter for closed fracture; X58.XXXA Exposure to other specified factors, initial encounter
CPT/HCPCS: 36415; 36600; 70450; 71045; 73630; 73721; 80048; 80053; 80307; 82140; 82553; 82803; 83605; 83735; 85025; 85610; 85651; 86140; 87040; 90471; 90715; 94760; 96365; 96366; 96372; 96375; 96376; 97161; 97165; 97535; 99285-25; A9270; G0378; J0696; J1170; J1650; J2060; J2270; J2310; J2405; J3490; J7030